=== PATIENT | male | born 1975 | race Caucasian/White ===

== ENCOUNTER 2023-09-02 10:58 | Emergency (ER) | payer BC, SELFPAY ==
[2023-09-02 11:06] VITALS: BP 180/112; BMI 28.3
--- NOTE | 2023-09-02 11:31 | ED.GENMED ---
History of Present Illness
General
Chief Complaint: Allergic Reaction
Source: patient
Exam Limitations: none
Time Seen by Provider: 09/02/23 11:23
Nursing documentation reviewed up to this point in time: agreed with
History of Present Illness
History of Present Illness:
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
gradually increasing concentration. Today patient reports was his first dose with the one-to-one concentration of allergen and he received the injection around 9:30 AM. He says within 30 minutes he started to have sensation of pruritus across his
chest, sensation of swelling of the ears and he felt like his right ear was tight and he had muffled hearing. He says that he developed some tingling in his tongue. He says that he was given a dose of Zyrtec 10 mg IM and he says shortly thereafter
his symptoms started to improve but he was transported to the emergency room to be assessed. He says he never had any shortness of breath or coughing. He did not have any nausea or vomiting or abdominal cramping. He says that on arrival here he
still has some slight pruritus and feeling of swelling in the ear but rest of symptoms have improved and he no longer has any tingling in the tongue or swelling in the tongue.
Review of Systems
Review of Systems
All Other Systems: ROS reviewed and negative except as documented in HPI and ROS
Constitutional: Denies fever
EENT: Reports other (Tongue tingling/swelling)
Respiratory: Denies cough or trouble breathing
ABD/GI: Denies abdominal pain, nausea or vomiting
: Denies flank pain
Musculoskeletal: Denies neck pain or back pain
Skin: Reports itching and rash
Neurological: Denies dizzy or headache
Phy Exam
Physical Exam
Physical Exam:
General: Awake, alert, oriented x3; no acute distress
Head: Normocephalic, atraumatic
Eyes: Conjunctiva normal, EOMI, pupils equal round reactive to light bilaterally
Ears: Pinna normal, TMs clear bilaterally
Throat: Airway intact, handling secretions, no swelling of the tongue, midline uvula with no edema
Neck: Trachea midline, supple without meningismus
Lungs: Clear to auscultation bilaterally, no wheezing, rales, rhonchi
Heart: Regular rate and rhythm, no murmurs, gallops, or rubs
Abd: Soft, non distended, nontender
Neuro: No gross deficits
Skin: no rash
Extremities: Warm and well-perfused
Scores
Heart Failure Risk
Heart Failure Risk Score: Not Applicable
Heart Score for Chest Pain Patients
STEMI patient?: Not applicable
Withdrawal Assessment of Alcohol
Withdrawal Assessment Completed?: Not applicable
Course
Orders/Labs/Results
Orders:
Orders
09/02/23 11:23
Dexamethasone [Decadron] 10 mg PO NOW STA
Diphenhydramine [Benadryl] 25 mg PO NOW STA
Famotidine [Pepcid] 40 mg PO NOW STA
09/02/23 11:30
Prednisone [Deltasone] 50 mg PO NOW STA
09/02/23 11:41
Dexamethasone [Decadron] 10 mg .ROUTE .STK-MED ONE
09/02/23 11:42
Diphenhydramine [Benadryl] 25 mg .ROUTE .STK-MED ONE
Vital Signs
Initial and Last Documented VS:
Initial Vital Signs
Temp Pulse Resp BP Pulse Ox
36.9 C 83 14 180/112 95
09/02/23 11:06 09/02/23 11:06 09/02/23 11:06 09/02/23 11:06 09/02/23 11:06
Last Documented Vital Signs
Temp Pulse Resp BP Pulse Ox
36.9 C 58 19 140/98 96
09/02/23 11:06 09/02/23 13:00 09/02/23 13:00 09/02/23 13:00 09/02/23 13:00
MDM/Problems Addressed
Differential Diagnosis Includes:
Allergic reaction
MDM/Problems Addressed:
47-year-old male presents for evaluation after allergic reaction�he is having desensitization with intermittent allergy injections of increasing intensity. Had higher concentration today and had allergic symptoms shortly thereafter. Was given
cetirizine 10 mg IM prior to arrival with improvement in the symptoms�almost resolved but still has some slight sensation of swelling in the ears. Exam reassuring here�was initially hypertensive but vital signs normalized by my assessment. Will
treat with p.o. steroid as well as Pepcid. Will observe here and reassess.
Reassessment patient remains awake and alert, symptoms have completely resolved. Vitals have been stable. Continue to observe.
Patient now 4 hours status post injection and is feeling well, asymptomatic with no rebound symptoms. I think he is stable for discharge. Will start on a short course of steroids and daily cetirizine. Provided an EpiPen for discharge as well. He
will follow-up with his power nut runner operator as an outpatient. He is very comfortable with this plan. Spoke about return precautions and all questions answered.
Acute Exacerbation and/or Progression of Chronic Illness:
Acutely hypertensive resolved without intervention continue to monitor but no emergent antihypertensive treatment indicated at present
Acute Exacerbation and/or Progression of Chronic Illness: HTN
*Pulse Oximetry
Patient hypoxic: no
*Critical Care Note
Total Time (30-74mins, 75-104mins- exclusive of procedures): Not Applicable
Data Reviewed
Source: patient and ambulance crew
ED Attending Note
-
Portions of this chart may have been created with voice recognition software.� Occasional wrong word or��sound alike� substitutions may have occurred due to the inherent limitations of voice recognition software.
Discharge Plan
Departure
Patient Disposition: Home (Routine Discharge)
Date of Disposition: 09/02/23
Time of Disposition: 13:01
Patient with high blood pressure during this ER visit?: Yes
Discharge Problem:
Allergic reaction
Instructions: Allergic Reaction ED
Prescriptions:
New
epinephrine [EpiPen 2-Lew] 0.3 mg/0.3 mL auto-injector
0.3 mg IM ONCE Qty: 2 0RF
prednisone 50 mg tablet
50 mg PO DAILY Qty: 4 0RF
cetirizine 10 mg tablet
10 mg PO DAILY Qty: 5 0RF
Referrals:
NONE,* [Family Provider] -
Activity Restrictions/Additional Instructions:
Thank you for visiting the Emergency Department at [facility].
1. Please schedule a follow up appointment as directed. Call first thing tomorrow morning to make an appointment.
2. If indicated, please take your medications as instructed and indicated on discharge paperwork.
3. If any of your symptoms do not improve, or persist, or become more severe within 6-12 hours, please return to the emergency department for further care.
4. Please return to the emergency department if you develop a headache, neck pain/stiffness, fever greater than 100.4F, chest pain, shortness of breath, persistent nausea, vomiting, slurred speech, difficulty walking, numbness/tingling, weakness,
signs of infection or any other symptoms that are worrisome to you.
Please call [phone] if you have any questions.
Interventions
Interventions:
*Risk Screen - Suicide Last Done: 09/02/23 11:06
*General Assessment Last Done: 09/02/23 11:06
*Neglect/Abuse Screening Last Done: 09/02/23 11:06
ED- Fall Risk Assessment Last Done: 09/02/23 11:06
*ED COVID-19 Vaccine History Last Done: 09/02/23 11:06
*Nursing Disposition Last Done: 09/02/23 13:09
ED- Cardiac Assessment Last Done: 09/02/23 11:06
ED- Pulmonary Assessment Last Done: 09/02/23 11:06
ED-Skin Assessment Last Done: 09/02/23 11:06
Discharge Date and Time
Discharge Date/Time: 09/02/23 13:13
Print Language: COLOMBI[place]
[2023-09-02] MEDS: BENADRYL PO (11:39)
[2023-09-02] MEDS: DECADRON PO (11:39)
[2023-09-02] MEDS: DELTASONE 50 MG PO (11:43)
[2023-09-02] MEDS: BENADRYL 25 MG PO (11:44)
[2023-09-02] MEDS: DECADRON 10 MG PO (11:44)
[2023-09-02] MEDS: PEPCID 40 MG PO (11:44)
[2023-09-02 12:00] VITALS: BP 139/92
[2023-09-02 13:00] VITALS: BP 140/98
== END 2023-09-02 13:13 | disposition home or self-care (01) ==
LOC: EMR 10:58
PROVIDERS: EMERGENCY PHYSICIAN Emergency Medicine
DX: T78.40XA Allergy, unspecified, initial encounter (principal); X58.XXXA Exposure to other specified factors, initial encounter; I10 Essential (primary) hypertension
CPT/HCPCS: 99282